=== PATIENT | male | born 1960 | race Two or more races ===

== ENCOUNTER → 2021-07-28 | Outpatient (CLI) | payer MEDICAID | END | disposition home or self-care (01) | LOC: XYW 13:00 | PROVIDERS: ATTEND Internal Medicine | DX: I08.1 Rheumatic disorders of both mitral and tricuspid valves (principal) | CPT/HCPCS: 93306 ==

== ENCOUNTER 2022-06-28 07:23 | Day surgery (SDC) | payer MEDICARE, MEDICAID ==
[2022-06-26 12:09] LABS: Basophils # (auto) 0.1 10 ^3/uL (0-0.2); Eosinophils # (auto) 0.2 10 ^3/uL (0-0.8); Eosinophils % (auto) 3.1 % (0.0-7.0); Hematocrit 32.3 % (41.0-53.0); Hemoglobin 10.8 g/dL (13.5-17.5); Lymphocytes # (auto) 0.7 10 ^3/uL (0.4-5.4); Lymphocytes % (auto) 11.4 % (10.0-50.0); Mean Corpuscular Hgb Conc. 33.4 g/dL (32.0-36.0); Monocytes # (auto) 0.7 10 ^3/uL (0-1.3); Neutrophils # (auto) 4.2 10 ^3/uL (1.6-8.6); Neutrophils % (auto) 72.5 % (37.0-80.0); Nucleated Red Blood Cells % 0.1 %; Red Blood Cells 3.59 10^6/uL (4.5-5.90); White Blood Cell 5.7 10^3/uL (4.4-10.8)
[2022-06-26 12:36] LABS: INR 0.97 (0.9-1.15); Partial Thromboplastin Time 29.9 sec (24.6-33.4)
[2022-06-26 12:41] LABS: Calcium 8.1 mg/dL (8.5-10.1); Potassium 5.4 mmol/L (3.5-5.1)
[2022-06-26 12:44] LABS: BUN/Creatinine Ratio 6.3
[2022-06-26 12:47] LABS: Bilirubin, Total 0.6 mg/dL (0.2-1.0); Total Protein 6.8 g/dL (6.4-8.2)
[2022-06-28] VITALS (8 sets, daily range): BP systolic 106–139; BP diastolic 39–77
[~2022-06-28] VITALS: Ht 170.2 cm; Wt 72.1 kg
[~2022-06-28 07:23] MED LIST: AMLO-496 PO; FERR-20 PO; FURO40TA4 PO; GLUC-244 VI; HYDR-4296 PO; METF-371 PO; METO-289 PO; POLY33504 PO
[2022-06-28] MEDS ORDERED: GELATIN 1 SPONGE SIZE 50 TOP ONE (08:46)
[2022-06-28] MEDS ORDERED: LIDOCAINE 2%HCL (LOCAL ANESTH.) INJ 20ML MDV ONE (08:46)
[2022-06-28] MEDS ORDERED: IODIXANOL 320MG/ML 100ML BTL IV ONE ×2 (08:47→09:44)
[2022-06-28] MEDS ORDERED: LIDOCAINE 2%HCL (LOCAL ANESTH.) INJ 10ml MDV ONE (09:02)
[2022-06-28] MEDS ORDERED: MIDAZOLAM HCL 2MG/2ML 2ml VIAL (1mg/ml) ONE (09:02)
[2022-06-28] MEDS ORDERED: fentaNYL CITRATE 100 MCG/2 ML VL ONE (09:02)
[2022-06-28] MEDS ORDERED: HEPARIN SODIUM (PORCINE) 5000 UNITS/ML 1ML VIAL ONE (09:02)
[2022-06-28] MEDS ORDERED: VERAPAMIL 2.5MG/ML INJ 2ML VIAL IV ONE (09:02)
[2022-06-28] MEDS ORDERED: ANGIOMAX 250 MG VIAL IV ONE (09:02)
[2022-06-28] MEDS ORDERED: SODIUM CHL 0.9% 50 ML ONE (09:03)
[2022-06-28] MEDS ORDERED: CLOPIDOGREL 300 MG TAB ONE (09:39)
[2022-06-28] MEDS ORDERED: ASPirin 325 MG TAB ONE (09:39)
[2022-06-28] MEDS ORDERED: EPINEPHrine HCL 1 MG/10 ML SYRG ONE (09:52)
[2022-06-28] MEDS ORDERED: ATROPINE SULF 1 MG/10ml SYR ONE (09:52)
== END 2022-06-28 13:51 | disposition home or self-care (01) ==
LOC: CATH 07:23
PROVIDERS: ATTEND Internal Medicine
DX: I25.118 Atherosclerotic heart disease of native coronary artery with other forms of angina pectoris (principal); I10 Essential (primary) hypertension; E11.9 Type 2 diabetes mellitus without complications; Z79.899 Other long term (current) drug therapy; Z98.890 Other specified postprocedural states; Z79.84 Long term (current) use of oral hypoglycemic drugs; Z20.822 Contact with and (suspected) exposure to COVID-19; Z79.01 Long term (current) use of anticoagulants
CPT/HCPCS: 36415; 80053; 85025; 85610; 85730; 92978; 93458; C1725; C1769; C1874; C1887; C1894; C9600; C9601; C9803; J0583; J1644; J2001; J2250; J3010; J7030; Q9967; U0003; 99152; 99153